=== PATIENT | female | born 2005 | race Caucasian/White ===

== ENCOUNTER 2024-03-03 01:03 | Emergency (ER) | payer OTHER ==
[2024-03-03 01:06] VITALS: TEMP 97.6
[2024-03-03] MEDS ORDERED: NS 1,000 ML IV ONE (01:15)
[2024-03-03 01:24] LABS: BASO % 0.4 % (0.0-2.0); EOS % 0.2 % (0.0-4.0); GRAN # 3.6 K/mm3 (1.4-6.5); GRAN % 43.6 % (42.2-75.2); HEMOGLOBIN 11.4 g/dl (12.0-15.0); LYMPH # 4.3 K/mm3 (1.2-3.4); LYMPH % 51.8 % (20.0-51.0); MEAN CELL VOLUME 90 fl (80.0-95.0); MEAN CORPUSCULAR HEMOGLOBIN 31 pg (26-32); MEAN CORPUSCULAR HGB CONC 34 g/dl (33.0-37.0); MEAN PLATELET VOLUME 9.1 fl (7.4-10.4); MONO # 0.3 K/mm3 (0.1-0.6); MONO % 3.8 % (1.7-9.3); PLATELET COUNT 400 K/mm3 (130-400)
[2024-03-03 01:25] LABS: HEMATOCRIT 33.2 % (35.0-45.0)
[2024-03-03 01:34] LABS: COLLECTION METHOD CLEAN CATCH
[2024-03-03 01:42] LABS: URINE APPEARANCE CLEAR (CLEAR/HAZY); URINE BLOOD NEGATIVE (NEGATIVE); URINE COLOR YELLOW (YELLOW); URINE GLUCOSE NEGATIVE (NEGATIVE); URINE KETONE NEGATIVE (NEGATIVE); URINE NITRATE NEGATIVE (NEGATIVE); URINE PROTEIN(semi-quant) NEGATIVE (NEGATIVE); URINE UROBILINOGEN 0.2 E.U/dL (0.2-1.0)
[2024-03-03 01:43] LABS: ALANINE AMINOTRANSFERASE 28 U/L (0-55); ALBUMIN 3.6 g/dL (3.5-5.0); ALCOHOL(ethanol),MEDICAL 270 mg/dL (0-10); ALKALINE PHOSPHATASE 80 U/L (40-150); ANION GAP 13 mmol/L (7-16); AST,SGOT 23 U/L (5-34); BILIRUBIN,TOTAL 0.3 mg/dL (0.2-1.2); BLOOD UREA NITROGEN 9 mg/dL (8-21); CALCIUM 8.4 mg/dL (8.4-10.2); CHLORIDE 108 mEq/L (98-107); CREATINE KINASE 46 U/L (29-168); CREATININE, serum 0.72 mg/dL (0.57-1.11); GLUCOSE 128 mg/dL (70-99); POTASSIUM 3.1 mEq/L (3.5-4.5); SODIUM 140 mEq/L (136-145); TOTAL PROTEIN 6.8 g/dl (6.2-8.1)
[2024-03-03 01:46] LABS: SALICYLATE < 5.0 mg/dL (15.0-30.0)
[2024-03-03 01:48] LABS: TROPONIN-I < 0.010 ng/mL (0.00-0.033)
[2024-03-03 01:52] LABS: TRICYCLIC ANTIDEPRESS URINE NEGATIVE (NEGATIVE)
[2024-03-03] MEDS ORDERED: NS 500 ML IV ONE ×2 (03:15→05:00)
[2024-03-03 05:29] VITALS: BP 100/52; PULSE 85
== END 2024-03-03 05:29 | disposition home or self-care (01) ==
LOC: COL.ER 01:03
PROVIDERS: Emergency Medicine
DX: F10.129 Alcohol abuse with intoxication, unspecified (principal); Y90.8 Blood alcohol level of 240 mg/100 ml or more
CPT/HCPCS: J7030; J7040